=== PATIENT | female | born 1995 | race Hispanic/Latino ===

== ENCOUNTER 2018-06-09 15:08 | Emergency (ER) | payer MEDICAID ==
[2018-06-09 15:20] VITALS: BMI 21.2
[2018-06-09 15:27] VITALS: RESP 18; TEMP 98.5
--- NOTE | 2018-06-09 16:06 | ED PDOC ---
Arrival/HPI - General Historian: Patient - History of Present Illness Narrative History of Present Illness (Text): 06/09/18 15:58 23-year-old female presents today with a three-week history of cough with yellow sputum. Patient denies dizziness or weakness. She denies shortness of breath. Patient states when symptoms originally started she was having nasal congestion sore throat but that has resolved. Patient denies abdominal pain. No nausea or vomiting. Patient denies chest pain. Patient states that time she'll go into a coughing fit which will make her dry heave. <Eva Sherman - Last Filed: 06/09/18 15:58> <Lyle Adame - Last Filed: 06/09/18 17:22> - General Chief Complaint: Cough, Cold, Congestion Time Seen by Provider: 06/09/18 15:09 Past Medical History - Provider Review Nursing Documentation Reviewed: Yes - Travel History Have you recently traveled outside [place] w/in the past 3 mons?: No - Infectious Disease Hx of Infectious Diseases: None - Tetanus Immunization Tetanus Immunization: Unknown - Past Medical History Past Medical History: No Previous - Cardiac Hx Cardiac Disorders: No - Pulmonary Hx Respiratory Disorders: No - Neurological Hx Neurological Disorder: No - HEENT Hx HEENT Disorder: No - Renal Hx Renal Disorder: No - Endocrine/Metabolic Hx Endocrine Disorders: No - Hematological/Oncological Hx Blood Disorders: No - Integumentary Hx Dermatological Disorder: No - Musculoskeletal/Rheumatological Hx Musculoskeletal Disorders: No - Gastrointestinal Hx Gastrointestinal Disorders: No - Genitourinary/Gynecological Hx Genitourinary Disorders: No - Psychiatric Hx Anxiety: Yes Hx Bipolar Disorder: Yes Hx Depression: Yes Hx Substance Use: No (Mother) - Past Surgical History Past Surgical History: No Previous - Anesthesia Hx Anesthesia: No Hx Anesthesia Reactions: No Hx Malignant Hyperthermia: No - Suicidal Assessment Feels Threatened In Home Enviroment: No <Eva Sherman - Last Filed: 06/09/18 15:58> - Reproductive Currently : Unknown <Lyle Adame - Last Filed: 06/09/18 17:22> Family/Social History - Physician Review Nursing Documentation Reviewed: Yes Family/Social History: Unknown Family HX Smoking Status: Never Smoked Hx Alcohol Use: No Hx Substance Use: No (Mother) Hx Substance Use Treatment: No <Eva Sherman - Last Filed: 06/09/18 15:58> Allergies/Home Meds <Eva Sherman T - Last Filed: 06/09/18 15:58> <WendiEarlLyle - Last Filed: 06/09/18 17:22> Allergies/Adverse Reactions: Allergies No Known Allergies Allergy (Verified 08/27/15 17:51) Home Medications: Home Meds Medication Instructions Recorded Confirmed clonazePAM [Klonopin] 1 mg PO DAILY 06/09/18 06/09/18 Review of Systems - Review of Systems Constitutional: absent: Fatigue, Fevers ENT: absent: Sore Throat, Sinus Congestion Respiratory: Cough. absent: SOB Cardiovascular: absent: Chest Pain, Palpitations Gastrointestinal: absent: Abdominal Pain, Nausea, Vomiting Genitourinary Female: absent: Dysuria Musculoskeletal: absent: Arthralgias Skin: absent: Rash Neurological: absent: Headache, Dizziness Psychiatric: absent: Anxiety, Depression <ChiquiEarl everettina T - Last Filed: 06/09/18 15:58> Physical Exam Vital Signs Reviewed: Yes Vital Signs Temp Pulse Resp BP Pulse Ox 06/09/18 15:09 98.5 F 93 H 18 115/75 98 Temperature: Afebrile Blood Pressure: Normal Pulse: Regular Respiratory Rate: Normal Appearance: Positive for: Well-Appearing, Non-Toxic, Comfortable Pain Distress: None Mental Status: Positive for: Alert and Oriented X 3 - Systems Exam Head: Present: Atraumatic Conjunctiva: Present: Normal Ears: Present: Normal, NORMAL TM Mouth: Present: Moist Mucous Membranes Pharnyx: Present: Normal. No: ERYTHEMA, EXUDATE Nose (External): Present: Atraumatic Nose (Internal): Present: Normal Inspection Neck: Present: Normal Range of Motion, Trachea Midline Respiratory/Chest: Present: Clear to Auscultation, Good Air Exchange. No: Respiratory Distress, Accessory Muscle Use Cardiovascular: Present: Regular Rate and Rhythm, Normal S1, S2. No: Murmurs Abdomen: No: Tenderness, Rebound, Guarding Upper Extremity: Present: Normal ROM Lower Extremity: Present: Normal ROM Neurological: Present: GCS=15, Speech Normal Skin: Present: Warm, Dry, Normal Color. No: Rashes Psychiatric: Present: Alert, Oriented x 3 <WhitEva T - Last Filed: 06/09/18 15:58> Vital Signs Temp Pulse Resp BP Pulse Ox 06/09/18 15:09 98.5 F 93 H 18 115/75 98 <Lyle Adame - Last Filed: 06/09/18 17:22> Medical Decision Making ED Course and Treatment: 06/09/18 16:01 23-year-old female with 3 week history of cough Chest x-ray: pt started on zithromax po. Patient advised follow the primary care physician within the next 2 days and take medications as prescribed. Patient was advised immediate return if symptoms worsen persist or if new concerning symptoms develop Patient verbalizes understanding of discharge instructions and need for immediate followup. all aspects of this case were discussed the attending of record. Impression: Cough Zithromax daily 4 days Increase fluids Follow-up with the primary care physician within the next 2 days Return if symptoms worsen persist or if new concerning symptoms develop - RAD Interpretation Radiology Orders: 06/09/18 15:47 CHEST TWO VIEWS (PA/LAT) [RAD] Stat <Eva Sherman - Last Filed: 06/09/18 15:58> - RAD Interpretation Radiology Orders: 06/09/18 15:47 CHEST TWO VIEWS (PA/LAT) [RAD] Stat <Lyle Adame - Last Filed: 06/09/18 17:22> - PA / [employer] / Resident Statement / has reviewed & agrees with the documentation as recorded. <Lyle Adame - Last Filed: 06/09/18 17:22> Disposition/Present on Arrival - Present on Arrival Any Indicators Present on Arrival: No History of DVT/PE: No History of Uncontrolled Diabetes: No Urinary Catheter: No History of Decub. Ulcer: No History Surgical Site Infection Following: None - Disposition Have Diagnosis and Disposition been Completed?: Yes Disposition Time: 16:06 Patient Plan: Discharge <Eva Sherman - Last Filed: 06/09/18 15:58> <Lyle Adame - Last Filed: 06/09/18 17:22> - Disposition Diagnosis: Cough Disposition: HOME/ ROUTINE Patient Problems: Current Active Problems Problem Status Onset Cough Acute Condition: GOOD Discharge Instructions (ExitCare): Cough in Adults Additional Instructions: Zithromax daily 4 days Increase fluids Follow-up with the primary care physician within the next 2 days Return if symptoms worsen persist or if new concerning symptoms develop Referrals: Patricia Archer MD [Medical Doctor] - Follow up with primary [facility] [Outside] - Follow up with primary [facility] [place] [Outside] - Follow up with primary Forms: [employer] ([place]), WORK NOTE
--- NOTE | 2018-06-09 17:08 | RAD ---
HISTORY: cough x 3 weeks COMPARISON: Chest x-ray performed 03/20/15 TECHNIQUE: Chest PA and lateral FINDINGS: LUNGS: No focal consolidation. Scattered probable tiny calcified granulomas. Please note that chest x-ray has limited sensitivity for the detection of pulmonary masses. PLEURA: No significant pleural effusion identified. No definite pneumothorax . CARDIOVASCULAR: The cardiomediastinal silhouette appears within normal limits of size. No atherosclerotic calcification present. OSSEOUS STRUCTURES: No acute osseous abnormality identified. VISUALIZED UPPER ABDOMEN: Unremarkable. OTHER FINDINGS: None. IMPRESSION: No acute findings.
[2018-06-09 17:57] VITALS: BP 118/74; PULSE 89; O2SAT 99
== END 2018-06-09 17:57 | disposition home or self-care (01) ==
LOC: ED 15:08
DX: R05 Cough (principal)